=== PATIENT | male | born 1965 | race Caucasian/White ===

== ENCOUNTER 2024-06-20 21:40 | Emergency (ER) | payer BC ==
[~2024-06-20] VITALS: Ht 177.8 cm; Wt 96.6 kg
--- NOTE | 2024-06-20 22:29 | ERN ---
ED Note History of Present Illness Stated Complaint: REACTION TO TESTOSTERONE SHOT, BODY PAIN Chief Complaint: Wound Check Time Seen by MD: 21:48 Dictation: This is a 58-year-old male who presented to the emergency room with a possible reaction to the testosterone injection that he took. Stated that he has been taking testosterone shots twice a week for many years from his body building dog trainer. He has never had any problems except for when he 1st time experienced redness and flu-like symptoms when he injected to the left gluteal area. He was seen at [facility] and given antibiotics for 1 week but does not recall what antibiotic he got. Stated that he was extremely sick and could not get out of bed. His drain her advised him to change the sites so this time he had given himself a shot on the right thigh. He developed severe pain body aches feverishness and he could not even get up to walk around. Came into the ER for evaluation. The testosterone that he is injecting apparently the dog trainer told him that he makes it himself at home. Temperature 99.8 pulse 96 respirations 18 blood pressure 156/94 pulse oximetry 98% on room air His chronic medical problems include diabetes mellitus and hypertension His girlfriend stated that in addition to the testosterone injections he also uses Cialis quite frequently Allergies: Coded Allergies: No Known Drug Allergies (Unverified Allergy, Unknown, 06/20/24) Home Meds Active Scripts Tramadol Hcl (Tramadol HCl) 50 Mg Tablet, 50 MG PO QID for pain, #16 TAB 0 Refills Prov:ROSSANA AMADO MD 06/21/24 Dicloxacillin Sodium (Dicloxacillin Sodium) 500 Mg Capsule, 1 CAP PO QID for 7 Days, #28 CAP 0 Refills Prov:ROSSANA AMADO MD 06/21/24 Past Medical History Past Medical History: Diabetes-Type II, Hypertension Surgical History: None Family History: Negative Social History: ETOH RN Note Reviewed/Agreed w/PFSH: Yes Review of System Dictation Constitutional: Negative for fever,chills, and weight loss Eyes: Negative for injury, pain,redness, and discharge ENT: Negative for injury,pain or swelling Cardiovascular: Negative for chest pain, palpitations, and edema Respiratory: Negative for shortness of breath, cough, and wheezing, Abdomen/GI: Negative for abdominal pain, nausea, vomiting, diarrhea, and constipation Back: Negative for injury and pain : Negative for injury, bleeding and discharge MS/Extremity: Negative for injury and deformity positive for erythema severe pain in the right thigh area of the injection site Skin: Negative for rash, and discoloration Neuro: Negative for headache, weakness, numbness, tingling, and seizure Psych: Negative for suicide ideation, homicidal ideation, and hallucinations Initial Vital Sign VS Vital Signs Date Time Temp Pulse Resp B/P (MAP) Pulse Ox O2 Delivery O2 Flow Rate FiO2 06/20/24 22:04 99.9 96 18 156/94 98 Room Air 0 06/20/24 22:30 21 Physical Exam Dictation General: awake, alert, NAD Head/Face: Normocephalic, atraumatic Eyes: PERRL, EOMI, vision at baseline ENT: oral cavity clear, TMs clear, no signs of infection Neck: Trachea midline, supple, no nuchal rigidity Cardiovascular: RRR, normal S1/S2, No MRGs, no JVD Respiratory: CTAB, no respiratory distress, No rales or wheezes Abdomen: Soft, non-tender, non-distended, normal bowel sounds, no guarding or rebound. Skin: Warm, dry, normal turgor, no rash MS/Extremity: Pulses equal, no cyanosis, neurovascular intact, FROM anterior right thigh area of erythema warmth and tenderness to touch but there is no induration or fluctuance. Neuro: COAx4, GCS 15, strength 5/5, CN 2-12 intact, normal cerebellar exam, normal gait, Psych: Normal behavior, mood, and affect normal Extremities-trace edema without any palpable cords, Homans sign is negative Results (Laboratory/Radiology) Laboratory/Radiology Laboratory Tests Test 06/20/24 22:33 White Blood Count 13.7 K/uL (4.8-10.8) H Red Blood Count 4.30 MIL/uL (4.50-6.20) L Hemoglobin 13.6 g/dL (14.0-18.0) L Hematocrit 40.0 % (42-54) L Mean Corpuscular Volume 93.0 fL (79-99) Mean Corpuscular Hemoglobin 31.6 pg (27.0-33.0) Mean Corpuscular Hemoglobin Concent 34.0 g/dL (32.0-36.0) Red Cell Distribution Width 12.4 % (11.0-15.5) Platelet Count 292 K/uL (130-400) Mean Platelet Volume 9.2 fL (7.5-10.5) Immature Granulocyte % (Auto) 0.6 % (0-1) Neutrophils (%) (Auto) 82.3 % (40.0-77.0) H Lymphocytes (%) (Auto) 8.3 % (21.0-51.0) L Monocytes (%) (Auto) 7.7 % (3.0-13.0) Eosinophils (%) (Auto) 0.7 % (0.0-8.0) Basophils (%) (Auto) 0.4 % (0.0-5.0) Neutrophils # (Auto) 11.3 K/uL (1.8-7.7) H Lymphocytes # (Auto) 1.1 K/uL (1.0-4.8) Monocytes # (Auto) 1.1 K/uL (0.1-1.0) H Eosinophils # (Auto) 0.10 K/uL (0.00-0.70) Basophils # (Auto) 0.05 K/uL (0.00-0.20) Absolute Immature Granulocyte (auto 0.08 K/uL (0-1) Nucleated Red Blood Cells 0.0 % (0.0-0.19) White Cell Morphology Comment See comments Sodium Level 131 mmol/L (136-145) L Potassium Level 3.9 mmol/L (3.5-5.1) Chloride Level 96 mmol/L (101-111) L Carbon Dioxide Level 30 mmol/L (21-32) Blood Urea Nitrogen 18 mg/dL (7-18) Creatinine 1.3 mg/dL (0.5-1.3) Glomerular Filtration Rate Calc 64 mL/min (>90) Random Glucose 130 mg/dL (70-105) H Total Calcium 8.5 mg/dL (8.5-10.1) Labs Reviewed?: Yes ED Course ED Course Orders Procedure Category Date Status Time Cbc With Differential LAB 06/20/24 Complete 22:24 Basic Metabolic Panel LAB 06/20/24 Complete 22:24 Ketorolac PHA 06/20/24 Complete Tromethamine 30mg/Ml 22:30 Cefazolin Sodium PHA 06/20/24 Complete (Ancef) 23:30 Hydromorphone 1 Mg PHA 06/21/24 Complete Inj (Dilaudid 1mg Inj 00:30 Ondansetron 4mg Inj PHA 06/21/24 Complete (Zofran 4mg Inj) 00:30 Current Medications Medications (Trade) Dose Ordered Sig/Calista Route PRN Reason Start Time Stop Time Status Last Admin Dose Admin Cefazolin Sodium (Ancef) 2 gm ONCE ONCE IVPB 06/20/24 23:30 06/20/24 23:31 DC 06/20/24 23:46 Hydromorphone HCl (DiLAUDid 1MG INJ) 1 mg ONCE ONCE IVP 06/21/24 00:30 06/21/24 00:31 DC 06/21/24 00:52 Ketorolac Tromethamine (toRADol) 30 mg ONCE ONCE IVP 06/20/24 22:30 06/20/24 22:37 DC 06/20/24 23:46 Ondansetron HCl (zoFRAN 4MG INJ) 4 mg ONCE ONCE IVP 06/21/24 00:30 06/21/24 00:31 DC 06/21/24 00:52 Vital Signs Date Time Temp Pulse Resp B/P (MAP) Pulse Ox O2 Delivery O2 Flow Rate FiO2 06/21/24 00:24 99.0 94 18 142/72 96 Room Air* 0 21 06/20/24 23:30 99.1 93 18 159/65 96 Room Air* 0 21 06/20/24 22:30 99.1 95 18 141/67 96 Room Air* 0 21 06/20/24 22:04 99.9 96 18 156/94 98 Room Air 0 We will perform diagnostic labs, and administer medications according to the patient's complaint. Once the results are available, will review and personally interpreted the labs to rule out any acute life-threatening emergency the trach require immediate intervention and treatment. I will then re-evaluate the patient after treatment and diagnostic exams have return to determine whether the patient requires any further testing, can safely be discharged home or need further admission to hospital for additional treatment and evaluation. Labs reviewed CBC shows a white count of 13.7 hemoglobin 13.6 platelets 292 BNP 7 shows a sodium of 131 chloride 96 BUN and creatinine are 18 and 1.3 I had a long discussion with the patient and his girlfriend, updated them on possibly infection due to either a contaminated needle or contaminated contents of the testosterone emulsion. With a low-grade fever and mild leukocytosis, we will administer a dose of antibiotic here and discharge him on p.o. antibiotics. If the cellulitis does not respond or worsen after discharge, patient needs to return to the ER so further workup for MRSA infection also we will be considered. Medical Decision Making MDM MDM: Differential diagnosis: Improper injection technique, cellulitis, foreign body reaction, adverse effects of testosterone Rationale: Tests considered and ordered secondary to shared decision making include: Previous outside records reviewed: Old ER visits. Risk of complication and/or morbidity or mortality of patient management: None Medications-Per medication reconciliation Need for hospitalization: Patient does not meet criteria for hospitalization. Need for emergency major/minor surgery: No There are no social concerns with this patient. Prescription drug management Prescriptions will include symptomatic care Patient's prior external medical records from other ER visits were reviewed by me as indicated. Prior testing and results from previous visits were reviewed. Prior tests were taken into account with medical decision making and resource utilization, independent historian/historians were used to obtain complete medical history. I independently interpreted the test that were performed, results were reviewed by me and considered findings on radiology if ordered. Medical management and examination interpretation discussions were had by me with other qualified healthcare professionals as indicated for the patient's care. Problem List Problem List: (1) Cellulitis of right thigh (2) Self-administration of medications (3) Testosterone adverse reaction (4) Pain in right lower leg DX & DISP Disposition: Discharge Departure Impression: Primary Impression: Cellulitis of right thigh Additional Impressions: Testosterone adverse reaction, Self-administration of medications, Pain in right lower leg Condition: Stable Scripts Tramadol Hcl (Tramadol HCl) 50 Mg Tablet 50 MG PO QID for pain, #16 TAB 0 Refills Prov: ROSSANA AMADO MD 06/21/24 Dicloxacillin Sodium (Dicloxacillin Sodium) 500 Mg Capsule 1 CAP PO QID for 7 Days, #28 CAP 0 Refills Prov: ROSSANA AMADO MD 06/21/24 Additional Instructions: Patient and the caregiver have been informed of all the diagnostic tests and the imaging conducted during the today's visit to the emergency room and has verbalized understanding of the results I have personally reviewed and interpreted all diagnostic exams performed here in the ER today as well as the vital signs documented by the nursing staff. The patient is now being discharge d to home and should follow up with the primary care physician or the specialist as directed by the ER staff. Follow-up with primary care provider in 1 to 2 days. Take medications as directed here in the emergency room. Okay to continue home medications unless otherwise discussed during your visit in the emergency room today. Return to your nearest emergency room if symptoms worsen or if there is no improvement. Call 911 if you need immediate assistance. Take Tylenol or Motrin [id number] as needed and if no contraindications are present. Increase oral hydration. A wound culture or urine culture was ordered here in the emergency room department please follow-up with primary care provider and advise them to get repeat ports from our facility. If you had any Blayne wrap/splints that were applied here, please do not remove them until you see your primary care or specialty. ROSSANA AMADO MD Jun 20, 2024 22:29
[2024-06-20 22:40] LABS: BASOPHILS # (AUTO) 0.05 K/uL (0.00-0.20); BASOPHILS % (AUTO) 0.4 % (0.0-5.0); EOSINOPHILS % (AUTO) 0.7 % (0.0-8.0); IMMATURE GRANULOCYTE ABSOLUTE 0.08 K/uL (0-1); LYMPHOCYTES # (AUTO) 1.1 K/uL (1.0-4.8); LYMPHOCYTES % (AUTO) 8.3 % (21.0-51.0); MEAN CORPUSCULAR HEMOGLOBIN 31.6 pg (27.0-33.0); MONOCYTES # (AUTO) 1.1 K/uL (0.1-1.0); MONOCYTES % (AUTO) 7.7 % (3.0-13.0); NEUTROPHILS # (AUTO) 11.3 K/uL (1.8-7.7); NEUTROPHILS % (AUTO) 82.3 % (40.0-77.0); PLATELET COUNT (AUTO) 292 K/uL (130-400); RED CELL DISTRIBUTION WIDTH 12.4 % (11.0-15.5); WHITE BLOOD COUNT (AUTO) 13.7 K/uL (4.8-10.8)
[2024-06-20 22:47] LABS: CREATININE 1.3 mg/dL (0.5-1.3); POTASSIUM 3.9 mmol/L (3.5-5.1)
[2024-06-20] MEDS: ketOROlac 30MG VIAL (30MG/ML) IVP ONE (23:46)
[2024-06-20] MEDS: ceFAZolin SODIUM 2 GM VIAL IVPB ONE (23:46)
[2024-06-21] MEDS ORDERED: DICL500C PO (00:23)
[2024-06-21] MEDS: ondanSETRON 4MG INJ IVP ONE (00:52)
[2024-06-21] MEDS: hydroMORPHone 1 MG INJ IVP ONE (00:52)
[2024-06-21] MEDS ORDERED: TRAM50TA4 PO (00:57)
[2024-06-21 01:19] VITALS: BP 139/69; PULSE 92; RESP 16; TEMP 98.9; O2SAT 97
[2024-06-22] MEDS ORDERED: KETO10TA2 PO (13:39)
== END 2024-06-21 01:21 | disposition home or self-care (01) ==
LOC: EDH 21:40
DX: L03.115 Cellulitis of right lower limb (principal); T38.7X5A Adverse effect of androgens and anabolic congeners, initial encounter; M79.661 Pain in right lower leg; E11.9 Type 2 diabetes mellitus without complications; I10 Essential (primary) hypertension; Y92.89 Other specified places as the place of occurrence of the external cause
CPT/HCPCS: 99284; 96365; 96375; 96366; 80048; 85025; 36415; J1885; J0690; J1171; J2405

== ENCOUNTER 2024-06-22 10:14 | Emergency (ER) | payer BC ==
[~2024-06-22] VITALS: Ht 177.8 cm; Wt 98.4 kg
[~2024-06-22 10:14] MED LIST: DICL500C PO; TRAM50TA4 PO
--- NOTE | 2024-06-22 11:02 | ERN ---
General Chief Complaint: Lower Extremity Pain/Injury Stated Complaint: PAIN RIGHT LEG Time Seen by MD: 10:20 Time Seen by Midlevel: 10:20 Source: patient History of Present Illness Initial Comments Patient is a 58-year-old male presenting to the emergency department for evaluation of severe right thigh pain. The patient states he has been self injecting testosterone injections and was told he should not reuse the same site multiple times so he decided to change the site to his right thigh. Shortly after the injection he noticed an increase in swelling. He was seen in our emergency department approximately two days ago where he was diagnosed with an injection site reaction and started on dicloxacillin and tramadol. Today he presents with an increase in redness and swelling to his right thigh. Reports difficulty walking. Allergies: Coded Allergies: No Known Drug Allergies (Unverified Allergy, Unknown, 06/20/24) Home Meds Active Scripts Tramadol Hcl (Tramadol HCl) 50 Mg Tablet, 50 MG PO QID for pain, #16 TAB 0 Refills Prov:ROSSANA AMADO MD 06/21/24 Dicloxacillin Sodium (Dicloxacillin Sodium) 500 Mg Capsule, 1 CAP PO QID for 7 Days, #28 CAP 0 Refills Prov:ROSSANA AMADO MD 06/21/24 Past Medical History Past Medical History: Diabetes-Type II, Hypertension Past Surgical History: None Family History Family History: Negative Social History Social History: ETOH ROS Dictation CONSTITUTIONAL: Negative except for HPI HEAD/FACE: Negative except for HPI EENT: Negative except for HPI RESPIRATORY: Negative except for HPI GASTROINTESTINAL/ABDOMINAL: Negative except for HPI GENITOURINARY: Negative except for HPI MUSCULOSKELETAL: Negative except for HPI INTEGUMENTARY: Negative except for HPI NEUROLOGICAL/PSYCH: Negative except for HPI HEMATOLOGIC/LYMPHATIC: Negative except for HPI All Systems Negative, Except as noted above. 13 point review of systems assessed and all negative except for above. Physical Exam Physical Exam Dictation Vital Signs reviewed General Appearance: Alert, oriented x 3, no acute distress, well developed, nourished. Head and Face: non-traumatic. Eyes: PERRL, pink conjunctivas, eyelid no trauma, anterior chamber with arcus senilis. Ears: Pinnas intact and no signs of trauma or erythema ear canals clear and no discharge TM no erythema Nose: No discharge, no bleeding. Oropharynx: Mouth normal, tongue pink, pharynx clear,no erythema, tonsils no exudates, no abscesses noted, mucous membrane moist Neck: Supple, non-tender, no thyromegaly, no masses, no JVD, no bruits Breast:Deferred Chest:No tenderness, no crepitus, no paradoxical movement, no retractions Lungs:Clear, well-ventilated, symmetric, no rales, no wheezing, no rhonchi, no stridor, good breath sounds bilaterally Heart: Regular rate, regular rhythm, no murmur, no gallops Vascular: no peripheral edema, Abdomen: Soft, positive bowel sounds, nondistended, no guarding, nontender, no rebound, no masses no hepatomegaly, no splenomegaly, no Shields's sign, no hernias. Rectal: Deferred Genital: Deferred Neurological: Normal speech, motor function intact, sensory function intact Musculoskeletal: Neck nontender, full range of motion, back nontender, full range of motion, Extremities: Swelling and tenderness to the right anterior thigh, Skin: Color pink, dry, no turgor, no rash, no lacerations, no abrasions, no contusions. Lymphatic: Deferred Results Laboratory and Microbiology Lab and Micro Result Laboratory Tests Test 06/22/24 11:30 White Blood Count 11.3 K/uL (4.8-10.8) H Red Blood Count 4.23 MIL/uL (4.50-6.20) L Hemoglobin 13.4 g/dL (14.0-18.0) L Hematocrit 40.5 % (42-54) L Mean Corpuscular Volume 95.7 fL (79-99) Mean Corpuscular Hemoglobin 31.7 pg (27.0-33.0) Mean Corpuscular Hemoglobin Concent 33.1 g/dL (32.0-36.0) Red Cell Distribution Width 12.5 % (11.0-15.5) Platelet Count 284 K/uL (130-400) Mean Platelet Volume 9.5 fL (7.5-10.5) Immature Granulocyte % (Auto) 0.4 % (0-1) Neutrophils (%) (Auto) 81.2 % (40.0-77.0) H Lymphocytes (%) (Auto) 8.9 % (21.0-51.0) L Monocytes (%) (Auto) 8.4 % (3.0-13.0) Eosinophils (%) (Auto) 0.7 % (0.0-8.0) Basophils (%) (Auto) 0.4 % (0.0-5.0) Neutrophils # (Auto) 9.2 K/uL (1.8-7.7) H Lymphocytes # (Auto) 1.0 K/uL (1.0-4.8) Monocytes # (Auto) 1.0 K/uL (0.1-1.0) Eosinophils # (Auto) 0.08 K/uL (0.00-0.70) Basophils # (Auto) 0.04 K/uL (0.00-0.20) Absolute Immature Granulocyte (auto 0.04 K/uL (0-1) Nucleated Red Blood Cells 0.0 % (0.0-0.19) Sodium Level 132 mmol/L (136-145) L Potassium Level 3.8 mmol/L (3.5-5.1) Chloride Level 97 mmol/L (101-111) L Carbon Dioxide Level 32 mmol/L (21-32) Blood Urea Nitrogen 15 mg/dL (7-18) Creatinine 1.0 mg/dL (0.5-1.3) Glomerular Filtration Rate Calc 88 mL/min (>90) Random Glucose 102 mg/dL (70-105) Lactic Acid Level 1.3 mmol/L (0.8-2.5) Total Calcium 8.8 mg/dL (8.5-10.1) Labs Reviewed?: Yes MDM MDM: Differential diagnosis: Cellulitis, abscess, infiltration, hematoma There are no social concerns with this patient. Prescription drug management Prescriptions will include: Toradol Medical management and examination interpretation discussions were had by me with other qualified healthcare professionals as indicated for the patient's care. ED Course Orders Procedure Category Date Status Time Cbc With Differential LAB 06/22/24 Complete 10:38 Basic Metabolic Panel LAB 06/22/24 Complete 10:38 Lactic Acid LAB 06/22/24 Complete 10:38 Procalcitonin LAB 06/22/24 In Process 10:38 Us Soft Tissue Lower US 06/22/24 Resulted Extremity 10:38 Ketorolac PHA 06/22/24 Complete Tromethamine 15mg/Ml 11:00 Morphine 2mg Syg PHA 06/22/24 Complete (Morphine 2mg Syg) 11:00 Ondansetron 4mg Inj PHA 06/22/24 Complete (Zofran 4mg Inj) 11:00 Current Medications Medications (Trade) Dose Ordered Sig/Calista Route PRN Reason Start Time Stop Time Status Last Admin Dose Admin Ketorolac Tromethamine (toRADol) 15 mg ONCE ONCE IV 06/22/24 11:00 06/22/24 11:01 DC 06/22/24 11:32 Morphine Sulfate (morPHINE 2MG SYG) 2 mg ONCE ONCE IVP 06/22/24 11:00 06/22/24 11:01 DC 06/22/24 11:32 Ondansetron HCl (zoFRAN 4MG INJ) 4 mg ONCE ONCE IVP 06/22/24 11:00 06/22/24 11:01 DC 06/22/24 11:32 Vital Signs Date Time Temp Pulse Resp B/P (MAP) Pulse Ox O2 Delivery O2 Flow Rate FiO2 06/22/24 10:36 99.5 93 20 155/99 98 [place] [address] IMAGING REPORT Signed PATIENT: VARUN SONI MR#: [id number] : 1965 SEX: M AGE: 58 LOCATION: [facility] ORDER 1040 STATUS: REG ER REPORT#: [id number] SERVICE 1038 REASON: right thigh swelling/pain ORDERING PHYSICIAN: ART HOLCOMB PROCEDURE: SOFT LOW E - US SOFT TISSUE LOWER EXTREMITY ULTRASOUND SOFT TISSUE LOWER EXTREMITY RIGHT INDICATION: Right thigh self injection. COMPARISON: None TECHNIQUE: Multiplanar sonographic images of the right thigh were obtained earlier in real-time using grayscale and color Doppler technique, and subsequently made available for review. FINDINGS/IMPRESSION: Right upper thigh edema includes a flattened fluid collection, possible IV infiltration, measuring 4.3 cm (long) x 0.6 (deep) x 4.3 cm (wide). DICTATED BY: TAYLOR GOYAL MD DATE: 06/22/24 1113 ELECTRONICALLY SIGNED BY: TAYLOR GOYAL MD DATE: 06/22/24 1123 DX & DISP Disposition: Discharge Departure Impression: Primary Impression: Right thigh pain Additional Impressions: Self-administration of medications, Testosterone adverse reaction Condition: Stable Additional Instructions: Your blood work today is stable. You were given IV morphine and IV Toradol in the emergency department. There were no signs of systemic infection. Your ultrasound of the right upper thigh shows edema and a fluid collection which is consistent with possible IV infiltration from the testosterone you injected. Continue with the antibiotics you were prescribed. I have given you a prescription for Toradol. You need to follow up with your primary care doctor for further evaluation. Referrals: SELF,REFERRAL (PCP) I have reviewed the case, and I agree with, Diagnosis and Plan I performed the substantive portion of the visit. I have reviewed and personally made and approve the management plan that is documented in the note by myself or the AJ. I acknowledge for responsibility for the patient's management plan. ART HOLCOMB Jun 22, 2024 11:02
--- NOTE | 2024-06-22 11:23 | HMCIMG ---
ULTRASOUND SOFT TISSUE LOWER EXTREMITY RIGHT INDICATION: Right thigh self injection. COMPARISON: None TECHNIQUE: Multiplanar sonographic images of the right thigh were obtained earlier in real-time using grayscale and color Doppler technique, and subsequently made available for review. FINDINGS/IMPRESSION: Right upper thigh edema includes a flattened fluid collection, possible IV infiltration, measuring 4.3 cm (long) x 0.6 (deep) x 4.3 cm (wide).
[2024-06-22] MEDS: morPHINE 2 MG SYG IVP ONE ×2 (11:32→13:48)
[2024-06-22] MEDS: ondanSETRON 4MG INJ IVP ONE (11:32)
[2024-06-22] MEDS: ketOROlac 15MG/ML VIAL (15MG/ML) IV ONE (11:32)
[2024-06-22 11:53] LABS: BASOPHILS # (AUTO) 0.04 K/uL (0.00-0.20); BASOPHILS % (AUTO) 0.4 % (0.0-5.0); EOSINOPHILS # (AUTO) 0.08 K/uL (0.00-0.70); EOSINOPHILS % (AUTO) 0.7 % (0.0-8.0); HEMATOCRIT 40.5 % (42-54); IMMATURE GRANULOCYTE ABSOLUTE 0.04 K/uL (0-1); LYMPHOCYTES % (AUTO) 8.9 % (21.0-51.0); MEAN CORPUSCULAR HEMOGLOBIN 31.7 pg (27.0-33.0); MEAN CORPUSCULAR HGB CONC 33.1 g/dL (32.0-36.0); MEAN CORPUSCULAR VOLUME 95.7 fL (79-99); MONOCYTES % (AUTO) 8.4 % (3.0-13.0); NEUTROPHILS # (AUTO) 9.2 K/uL (1.8-7.7); NEUTROPHILS % (AUTO) 81.2 % (40.0-77.0); PLATELET COUNT (AUTO) 284 K/uL (130-400); RED BLOOD CELL COUNT(AUTO) 4.23 MIL/uL (4.50-6.20); RED CELL DISTRIBUTION WIDTH 12.5 % (11.0-15.5); WHITE BLOOD COUNT (AUTO) 11.3 K/uL (4.8-10.8)
[2024-06-22 12:07] LABS: POTASSIUM 3.8 mmol/L (3.5-5.1)
[2024-06-22] MEDS ORDERED: KETO10TA2 PO (13:39)
[2024-06-22 14:01] VITALS: BP 137/79; PULSE 65; RESP 18; TEMP 97.9; O2SAT 98
== END 2024-06-22 14:19 | disposition home or self-care (01) ==
LOC: EDH 10:14
DX: M79.651 Pain in right thigh (principal); T38.7X5A Adverse effect of androgens and anabolic congeners, initial encounter; E11.9 Type 2 diabetes mellitus without complications; I10 Essential (primary) hypertension; Z79.899 Other long term (current) drug therapy; Y92.89 Other specified places as the place of occurrence of the external cause
CPT/HCPCS: 99284; 96374; 96375; 80048; 85025; 83605; 36415; 76882; 96376; 84145; J1885; J2270 ×2; J2405

== ENCOUNTER 2024-06-23 20:02 | Emergency (ER) | payer BC ==
[~2024-06-23] VITALS: Ht 177.8 cm; Wt 98.4 kg
[~2024-06-23 20:02] MED LIST changes: +KETO10TA2 PO
--- NOTE | 2024-06-23 20:13 | ERN ---
ED Note History of Present Illness Stated Complaint: SWOLLEN LEGS, BALL ON INJECTION SITE Time Seen by MD: 20:05 Time Seen by Midlevel: 20:07 Dictation: Ms. Mcfarlane is a 58 year old gentleman with history of hypertension and type II DM who presented to the Emergency Department this evening for evaluation of thigh pain. He reports pain, erythema, warmth, swelling of anterior surface of the right thigh. He injected a dose of testosterone into the thigh on Thursday. He was seen in the emergency department on a 06/20 and diagnosed with cellulitis. He was discharged to home with prescriptions for tramadol and Dicloxacillin. He returned yesterday with concerns of continued swelling and pain. An ultrasound was performed which showed a infiltration of fluid measuring four point cm long by 0 point 0 6 cm deep, and four point cm wide. He states today he was on his feet more and walking a lot. He states he is concerned because he is still having pain. He denies having fever, chills, shortness of breath, nausea, vomiting, diarrhea, headache, or dizziness. There is no open wound or abscess formation noted Allergies: Coded Allergies: No Known Drug Allergies (Unverified Allergy, Unknown, 06/20/24) Home Meds Active Scripts Ketorolac Tromethamine (Ketorolac Tromethamine) 10 Mg Tablet, 1 TAB PO TID for pain for 5 Days, #15 TAB 0 Refills Prov:ART HOLCOMB 06/22/24 Tramadol Hcl (Tramadol HCl) 50 Mg Tablet, 50 MG PO QID for pain, #16 TAB 0 Refills Prov:ROSSANA AMADO MD 06/21/24 Dicloxacillin Sodium (Dicloxacillin Sodium) 500 Mg Capsule, 1 CAP PO QID for 7 Days, #28 CAP 0 Refills Prov:ROSSANA AMADO MD 06/21/24 Past Medical History Past Medical History: Diabetes-Type II, Hypertension Surgical History: None PSYCH History: no pertinent psych hx Family History: Negative Social History: ETOH, Negative, Lives with family RN Note Reviewed/Agreed w/PFSH: Yes Review of System Dictation REVIEW OF SYSTEMS: CONSTITUTIONAL: Patient denies fevers, chills, sweats and weight changes. EYES: Patient denies any visual symptoms. EARS, NOSE, AND THROAT: No difficulties with hearing. No symptoms of rhinitis or sore throat. CARDIOVASCULAR: Patient denies chest pains, palpitations, orthopnea and paroxysmal nocturnal dyspnea. RESPIRATORY: No dyspnea on exertion, no wheezing or cough. GI: No nausea, vomiting, diarrhea, constipation, abdominal pain, hematochezia or melena. : No urinary hesitancy or dribbling. No nocturia or urinary frequency. No abnormal urethral discharge. MUSCULOSKELETAL: Reports pain and swelling right thigh NEUROLOGIC: No chronic headaches, no seizures. Patient denies numbness, tingling or weakness. PSYCHIATRIC: Patient denies problems with mood disturbance. No problems with anxiety. ENDOCRINE: No excessive urination or excessive thirst. DERMATOLOGIC: Reports bright redness and warmth to anterior aspect of the right thigh following injection of testosterone Initial Vital Sign VS Vital Signs Date Time Temp Pulse Resp B/P (MAP) Pulse Ox O2 Delivery O2 Flow Rate FiO2 06/23/24 20:03 97.3 85 20 145/79 99 Room Air 06/23/24 20:44 0 21 Physical Exam Dictation Vital signs: Reviewed. Temperature 99.2 Constitutional: No acute distress. Non-toxic appearing. Head/Face: Normocephalic, atraumatic. Eyes: Periorbital areas with no swelling, redness, or edema. Lids and lashes are normal. Conjunctival injection is absent. Sclera anicteric. Pupils equal, round, reactive to light. ENT: Pinnas intact and no signs of trauma or erythema. Ear canals clear and no discharge. TMs no erythema. No nasal discharge or bleeding noted. Oropharynx with no exudate, redness, swelling, masses, exudates, or evidence of obstruction. Uvula midline. Mucous membranes moist. Neck: Trachea midline, no masses palpated, and no cervical lymphadenopathy. No swelling. Supple, full range of motion. Chest/Axilla: No tenderness, no crepitus, no paradoxical movement, no retractions. Cardiovascular: Regular rate, regular rhythm, no murmur, no gallops. Symmetric pulses. No peripheral edema. Respiratory: Respirations even and unlabored. Lung sounds clear; no wheezes, rales or rhonchi. Room air SpO2 98%. Gastrointestinal: Inspection is normal. No distention is appreciated. Bowel sounds are normal. No mass or organomegaly . There is no tenderness. No rebound. No rigidity. No voluntary or involuntary guarding. No Shields's sign. Neurological: Normal speech, gross motor function intact, gross sensory function intact. No focal weakness/Paresthesia. Musculoskeletal/Extremities: All extremities have full range of motion,. There is tenderness upon palpation right anterior thigh. Symmetric pulses. Integumentary: Intact. No open wounds/abscess formation. There is bright erythema and warmth to the anterior surface of the thigh. Skin is normal color, warm and dry. Cap refill less than 2 seconds. Results (Laboratory/Radiology) Laboratory/Radiology Laboratory Tests Test 06/23/24 21:07 White Blood Count 9.4 K/uL (4.8-10.8) Red Blood Count 4.25 MIL/uL (4.50-6.20) L Hemoglobin 13.6 g/dL (14.0-18.0) L Hematocrit 41.0 % (42-54) L Mean Corpuscular Volume 96.5 fL (79-99) Mean Corpuscular Hemoglobin 32.0 pg (27.0-33.0) Mean Corpuscular Hemoglobin Concent 33.2 g/dL (32.0-36.0) Red Cell Distribution Width 12.1 % (11.0-15.5) Platelet Count 319 K/uL (130-400) Mean Platelet Volume 9.5 fL (7.5-10.5) Immature Granulocyte % (Auto) 0.2 % (0-1) Neutrophils (%) (Auto) 78.2 % (40.0-77.0) H Lymphocytes (%) (Auto) 11.8 % (21.0-51.0) L Monocytes (%) (Auto) 7.7 % (3.0-13.0) Eosinophils (%) (Auto) 1.7 % (0.0-8.0) Basophils (%) (Auto) 0.4 % (0.0-5.0) Neutrophils # (Auto) 7.4 K/uL (1.8-7.7) Lymphocytes # (Auto) 1.1 K/uL (1.0-4.8) Monocytes # (Auto) 0.7 K/uL (0.1-1.0) Eosinophils # (Auto) 0.16 K/uL (0.00-0.70) Basophils # (Auto) 0.04 K/uL (0.00-0.20) Absolute Immature Granulocyte (auto 0.02 K/uL (0-1) Nucleated Red Blood Cells 0.0 % (0.0-0.19) Sodium Level 135 mmol/L (136-145) L Potassium Level 3.6 mmol/L (3.5-5.1) Chloride Level 96 mmol/L (101-111) L Carbon Dioxide Level 33 mmol/L (21-32) H Blood Urea Nitrogen 17 mg/dL (7-18) Creatinine 1.1 mg/dL (0.5-1.3) Glomerular Filtration Rate Calc 79 mL/min (>90) Random Glucose 103 mg/dL (70-105) Total Calcium 9.0 mg/dL (8.5-10.1) ED Course ED Course Orders Procedure Category Date Status Time Us Soft Tissue Lower US 06/23/24 Taken Extremity 20:11 Cbc With Differential LAB 06/23/24 Complete 20:12 Basic Metabolic Panel LAB 06/23/24 Complete 20:12 Hydromorphone 1 Mg PHA 06/23/24 Complete Inj (Dilaudid 1mg Inj 21:00 Current Medications Medications (Trade) Dose Ordered Sig/Calista Route PRN Reason Start Time Stop Time Status Last Admin Dose Admin Hydromorphone HCl (DiLAUDid 1MG INJ) 1 mg ONCE ONCE IV 06/23/24 21:00 06/23/24 21:01 DC 06/23/24 21:02 Vital Signs Date Time Temp Pulse Resp B/P (MAP) Pulse Ox O2 Delivery O2 Flow Rate FiO2 06/23/24 20:44 97.3 85 20 145/79 99 Room Air* 0 21 06/23/24 20:03 97.3 85 20 145/79 99 Room Air We will ED course. Vital signs stable; afebrile. Patient room complaining of increased pain to the right anterior thigh. He received doses of [place], Dilaudid and dexamethasone. Repeat ultrasound unchanged from previous; noted myositis. Findings were discussed with patient and all questions were answered. He should continue his antibiotic and pain medications as previously prescribe d. Medical Decision Making MDM MDM: Differential diagnosis: Myositis, cellulitis, abscess formation Rationale: Tests considered and ordered secondary to shared decision making include: Ultrasound Previous outside records reviewed: Old ER visits. Risk of complication and/or morbidity or mortality of patient management: None Medications-Per medication reconciliation Need for hospitalization: Patient does not meet criteria for hospitalization. Need for emergency major/minor surgery: No There are no social concerns with this patient. Prescription drug management: Continue previously prescribed antibiotic and pain medications Prescriptions will include symptomatic care Patient's prior external medical records from other ER visits were reviewed by me as indicated. Prior testing and results from previous visits were reviewed. Prior tests were taken into account with medical decision making and resource utilization, independent historian/historians were used to obtain complete medical history. I independently interpreted the test that were performed, results were reviewed by me and considered findings on radiology if ordered. Medical management and examination interpretation discussions were had by me with other qualified healthcare professionals as indicated for the patient's care. DX & DISP Disposition: Discharge Departure Impression: Primary Impression: Cellulitis of right thigh Additional Impressions: Self-administration of medications, Right thigh pain, Myositis Condition: Stable Additional Instructions: Rest; no work x2 days. Keep right leg elevated. Apply warm moist packs to the anterior thigh. Monitor for signs of increased swelling or spreading redness; toribio borders with a pen. Continue your antibiotic and pain medications as previously prescribed. Follow up with your primary care physician. Return to the emergency department for worsening of symptoms or concerns. Referrals: SELF,REFERRAL (PCP) Time of Disposition: 21:53 SAJAN ONEILL NP Jun 23, 2024 20:13
--- NOTE | 2024-06-23 20:15 | NUR ---
PT TO RADIOLOGY FOR ULTRA SOUND
--- NOTE | 2024-06-23 20:29 | NUR ---
RETURNED FROM RADIOLOGY
[2024-06-23 20:44] VITALS: BP 145/79; PULSE 85; RESP 20; TEMP 97.4; O2SAT 99
[2024-06-23] MEDS: hydroMORPHone 1 MG INJ IV ONE (21:02)
[2024-06-23 21:14] LABS: BASOPHILS # (AUTO) 0.04 K/uL (0.00-0.20); BASOPHILS % (AUTO) 0.4 % (0.0-5.0); EOSINOPHILS # (AUTO) 0.16 K/uL (0.00-0.70); EOSINOPHILS % (AUTO) 1.7 % (0.0-8.0); IMMATURE GRANULOCYTE ABSOLUTE 0.02 K/uL (0-1); LYMPHOCYTES # (AUTO) 1.1 K/uL (1.0-4.8); LYMPHOCYTES % (AUTO) 11.8 % (21.0-51.0); MEAN CORPUSCULAR HGB CONC 33.2 g/dL (32.0-36.0); MEAN CORPUSCULAR VOLUME 96.5 fL (79-99); MONOCYTES # (AUTO) 0.7 K/uL (0.1-1.0); MONOCYTES % (AUTO) 7.7 % (3.0-13.0); NEUTROPHILS # (AUTO) 7.4 K/uL (1.8-7.7); NEUTROPHILS % (AUTO) 78.2 % (40.0-77.0); PLATELET COUNT (AUTO) 319 K/uL (130-400); RED BLOOD CELL COUNT(AUTO) 4.25 MIL/uL (4.50-6.20); RED CELL DISTRIBUTION WIDTH 12.1 % (11.0-15.5); WHITE BLOOD COUNT (AUTO) 9.4 K/uL (4.8-10.8)
[2024-06-23 21:24] LABS: CREATININE 1.1 mg/dL (0.5-1.3); POTASSIUM 3.6 mmol/L (3.5-5.1)
[2024-06-23] MEDS: HYDROcodone/APAP 5/325 1 TAB TABLET PO ONE (22:05)
[2024-06-23] MEDS: dexaMETHasone SOD PHOSPHATE 4 MG/ML 1ML VIAL IM ONE (22:05)
--- NOTE | 2024-06-24 10:50 | HMCIMG ---
ULTRASOUND SOFT TISSUE LOWER EXTREMITY INDICATION: Swelling right thigh COMPARISON: None TECHNIQUE: Multiplanar sonographic images of the right thigh were obtained earlier in real-time using grayscale and color Doppler technique, and subsequently made available for review. FINDINGS/IMPRESSION: Slightly increased echogenicity throughout an enlarged anterolateral right thigh muscle at previous IM injections site with overlying subcutaneous edema, but no evidence for organized/drainable fluid collection or hematoma. This could represent underlying myositis. Contrast-enhanced CT imaging of the right thigh can be obtained for confirmation, if necessary.
== END 2024-06-23 22:12 | disposition home or self-care (01) ==
LOC: EDH 20:02
DX: L03.115 Cellulitis of right lower limb (principal); M60.9 Myositis, unspecified; E11.9 Type 2 diabetes mellitus without complications; I10 Essential (primary) hypertension; Z79.899 Other long term (current) drug therapy
CPT/HCPCS: 99284; 96374; 80048; 85025; 36415; 76882; 96372; J1100; J1171

== ENCOUNTER 2025-03-31 09:44 | Emergency (ER) | payer BC ==
[~2025-03-31] VITALS: Ht 177.8 cm; Wt 98.4 kg
--- NOTE | 2025-03-31 10:10 | ERN ---
ED Note History of Present Illness Stated Complaint: LOWER BACK INJURY Chief Complaint: Back Injury Time Seen by MD: 10:00 Time Seen by Midlevel: 10:02 Dictation: Mr. Mcfarlane is a 59 year old male with history of type II DM, hypertension, testosterone deficiency/on therapy, and obesity who presented to the emergency department this morning for evaluation of acute right-sided low back pain. Patient reports onset of pain four days ago after an aggressive workout at the gym. He states pain worsened two days ago when bending over to grain picker a sock. Pain is localized in the right lower lumbar region just above the buttock. He denies radiation of pain, numbness, tingling, or weakness of the lower extremities. He denies bowel or bladder incontinence, urinary retention, saddle anesthesia, fever, chills, unexplained weight loss, or history of malignancy. He is able to ambulate utilizing a cane. Pain has interfered with his ability to work and reports missing two days of work. No prior spinal surgery. He re ports having tramadol available at home. Allergies: Coded Allergies: No Known Drug Allergies (Unverified Allergy, Unknown, 06/20/24) Emergency Care SPOOL FIXER: None Home Meds Active Scripts Cyclobenzaprine HCl (Cyclobenzaprine HCl) 5 Mg Tablet, 5 MG PO [id number] PRN for muscle spasm, #9 TAB 0 Refills Prov:SAJAN ONEILL [employer] 03/31/25 Ketorolac Tromethamine (Ketorolac Tromethamine) 10 Mg Tablet, 1 TAB PO TID for pain for 5 Days, #15 TAB 0 Refills Prov:ART HOLCOMB PAC 06/22/24 Tramadol Hcl (Tramadol HCl) 50 Mg Tablet, 50 MG PO QID for pain, #16 TAB 0 Refills Prov:ROSSANA AMADO MD 06/21/24 Dicloxacillin Sodium (Dicloxacillin Sodium) 500 Mg Capsule, 1 CAP PO QID for 7 Days, #28 CAP 0 Refills Prov:ROSSANA AMADO MD 06/21/24 Past Medical History Past Medical History: Diabetes-Type II, Hypertension Surgical History: Appendectomy Surgical History Other: NOSE SX Family History: Negative Social History: ETOH, Negative, Lives with family RN Note Reviewed/Agreed w/PFSH: Yes Review of System Dictation IREVIEW OF SYSTEMS: CONSTITUTIONAL: Patient denies fevers, chills, sweats and weight changes. EYES: Patient denies any visual symptoms. EARS, NOSE, AND THROAT: No difficulties with hearing. No symptoms of rhinitis or sore throat. CARDIOVASCULAR: Patient denies chest pains, palpitations, orthopnea and paroxysmal nocturnal dyspnea. RESPIRATORY: No dyspnea on exertion, no wheezing or cough. GI: No nausea, vomiting, diarrhea, constipation, abdominal pain, hematochezia or melena. : No urinary hesitancy or dribbling. No nocturia or urinary frequency. No abnormal urethral discharge. MUSCULOSKELETAL: Reports right-sided low back pain. NEUROLOGIC: No chronic headaches, no seizures. Patient denies numbness, tingling or weakness. Denies saddle anesthesia, focal weakness, incontinence of bowel or bladder, or difficulty urinating PSYCHIATRIC: Patient denies problems with mood disturbance. No problems with anxiety. ENDOCRINE: No excessive urination or excessive thirst. DERMATOLOGIC: Patient denies any rashes or skin changes. Initial Vital Sign VS Vital Signs Date Time Temp Pulse Resp B/P (MAP) Pulse Ox O2 Delivery O2 Flow Rate FiO2 03/31/25 09:45 98.2 77 20 169/90 98 03/31/25 11:03 Room Air* 0 21 Physical Exam Dictation Vital signs: Reviewed. Afebrile Constitutional: No acute distress. Uncomfortable. Ambulating with cane. Accompanied by significant other Head/Face: Normocephalic, atraumatic. Eyes: Periorbital areas with no swelling, redness, or edema. Lids and lashes are normal. Conjunctival injection is absent. Sclera anicteric. Pupils equal, round, reactive to light. ENT: Pinnas intact and no signs of trauma or erythema. Ear canals clear and no discharge. TMs no erythema. No nasal discharge or bleeding noted. Oropharynx with no exudate, redness, swelling, masses, exudates, or evidence of obstruction. Uvula midline. Mucous membranes moist. Neck: Trachea midline, no masses palpated, and no cervical lymphadenopathy. No swelling. Supple, full range of motion. Chest/Axilla: No tenderness, no crepitus, no paradoxical movement, no retractions. Cardiovascular: Regular rate, regular rhythm, no murmur, no gallops. Symmetric pulses. No peripheral edema. BP elevated 169/90 Respiratory: Respirations even and unlabored. Lung sounds clear; no wheezes, rales or rhonchi. Room air SpO2 98% Gastrointestinal: Inspection is normal. No distention is appreciated. Bowel sounds are normal. No mass or organomegaly . There is no tenderness. No rebound. No rigidity. No voluntary or involuntary guarding. No Shields's sign. Neurological: Normal speech, gross motor function intact, gross sensory function intact. No focal weakness/Paresthesia. Musculoskeletal/Extremities: All extremities have full range of motion. Ambulating independently steady gait. Symmetric pulses. Back with no deformity, swelling, erythema, or ecchymosis. There was no midline spinal tenderness. No paraspinal muscle tenderness. Integumentary: Intact. Skin is normal color, warm and dry. Cap refill less than 3 seconds. ED Course ED Course Orders Procedure Category Date Status Time Diazepam 5 Mg/Ml 2 Ml PHA 03/31/25 Complete Syg (Valium 5 Mg/M 10:30 Ketorolac PHA 03/31/25 Complete Tromethamine 30mg/Ml 10:30 Current Medications Medications (Trade) Dose Ordered Sig/Calista Route PRN Reason Start Time Stop Time Status Last Admin Dose Admin Diazepam (VALium 5 MG/ML 2 ML SYG) 5 mg ONCE ONCE IM 03/31/25 10:30 03/31/25 10:31 DC 03/31/25 10:52 Ketorolac Tromethamine (toRADol) 30 mg ONCE ONCE IM 03/31/25 10:30 03/31/25 10:31 DC 03/31/25 10:51 Vital Signs Date Time Temp Pulse Resp B/P (MAP) Pulse Ox O2 Delivery O2 Flow Rate FiO2 03/31/25 11:22 98.2 72 15 156/92 94 Room Air* 0 21 03/31/25 11:03 98.2 77 20 169/90 98 Room Air* 0 21 03/31/25 09:45 98.2 77 20 169/90 98 Medical Decision Making MDM MDM: Differential diagnosis: Acute lumbar muscle strain/myofascial strain, lumbar ligamentous strain, lumbar radiculopathy Rationale: Tests considered and ordered secondary to shared decision making include: Examination Previous outside records reviewed: Old ER visits. Risk of complication and/or morbidity or mortality of patient management: None Medications-Per medication reconciliation Need for hospitalization: Patient does not meet criteria for hospitalization. Need for emergency major/minor surgery: No There are no social concerns with this patient. Prescription drug management: Flexeril, OTC Tylenol or ibuprofen, patient has t ramadol at home Prescriptions will include symptomatic care Patient's prior external medical records from other ER visits were reviewed by me as indicated. Prior testing and results from previous visits were reviewed. Prior tests were taken into account with medical decision making and resource utilization, independent historian/historians were used to obtain complete medical history. I independently interpreted the test that were performed, results were reviewed by me and considered findings on radiology if ordered. Medical management and examination interpretation discussions were had by me with other qualified healthcare professionals as indicated for the patient's care. DX & DISP Disposition: Discharge Departure Impression: Primary Impression: Low back strain Condition: Stable Scripts Cyclobenzaprine HCl (Cyclobenzaprine HCl) 5 Mg Tablet 5 MG PO [id number] PRN for muscle spasm, #9 TAB 0 Refills Prov: SAJAN ONEILL [facility] 03/31/25 Additional Instructions: You may use tramadol you already have at home as prescribed for pain. Flexeril every 12 hours as needed for muscle spasm. This may cause drowsiness or dizziness. Do not drive or operate heavy machinery while taking. Do not take the tramadol and Flexeril at the same time due to increased risk of sedation and slowed breathing. Avoid alcohol while taking these medications. You may also use [id number] Tylenol or ibuprofen as needed. Oral steroids are not recommended at this time. There are no signs of nerve compression or spinal emergency. Steroids may cause significant blood sugar elevation in patients with diabetes. Stay active as tolerated at home; avoid prolonged bed rest. Use ice or heat to the affected area as needed. Gentle stretching as pain allows. Avoid heavy lifting or strenuous activity until improves. Return to the emergency department immediately if you develop any of the following (red flags) : New or worsening weakness, numbness, or tingling in either leg Loss of bowel or bladder control or inability to urinate Numbness in the groin or saddle area Fever, chills or signs of infection Severe or worsening pain not controlled with medications Difficulty walking or inability to stand. Follow up with your primary care provider in the next week. Referrals: SELF,REFERRAL (PCP) Time of Disposition: 10:28 SAJAN ONEILL Mar 31, 2025 10:10 SAIRA FLOOD DO Mar 31, 2025 11:30
[2025-03-31] MEDS ORDERED: CYCL5TAB3 PO (10:25)
[2025-03-31 11:22] VITALS: BP 156/92; PULSE 72; RESP 15; TEMP 98.2; O2SAT 94
== END 2025-03-31 11:32 | disposition home or self-care (01) ==
LOC: EDH 09:44
DX: S39.012A Strain of muscle, fascia and tendon of lower back, initial encounter (principal); E11.9 Type 2 diabetes mellitus without complications; I10 Essential (primary) hypertension; E66.9 Obesity, unspecified; Z90.49 Acquired absence of other specified parts of digestive tract; X50.0XXA Overexertion from strenuous movement or load, initial encounter; Y93.89 Activity, other specified; Y92.89 Other specified places as the place of occurrence of the external cause; Y99.8 Other external cause status
CPT/HCPCS: 99284; 96372 ×2; J1885; J3360